=== PATIENT | female | born 1940 | race Caucasian/White ===

== ENCOUNTER 2016-11-20 05:41 | Day surgery (SDC) | payer MEDICARE ==
--- NOTE | 2016-11-19 10:26 | HP ---
DATE OF CLINIC: 11/18/2016 SEJAL ENGLISH : 1940 PLANNED PROCEDURE: Right Carpal Tunnel Release DATE OF SURGERY: November 20, 2016 SURGEON: Jarvis Tate M.D. HISTORY OF PRESENT ILLNESS Sejal English is a 76 year old female. * Medication list reviewed with patient allergy list reviewed with patient. * Tried NSAIDS Naproxen * Has not tried Physical Therapy * Has not tried Injections 76-year-old female who has a multi-year history of increasing pain in her bilateral hands. It radiates to her radial 3 1/2 digits. She also notices she has had some difficulty with fine motor tasks that has been increasing over the past few months. She has pain where baseline is about a 1/10, but when it gets flared up it can be as bad as 4-5/10. She has worn night splints with no relief, but has not had any injections or any previous procedures. She also takes some occasional Naproxen and this has not significantly changed her symptoms. After discussion and review of treatment options, both operative and non-operative, she has elected to proceed with surgery and presents today preoperatively. Past medical and surgical history are as documented. CURRENT MEDICATION * Alendronate Sodium 70 MG Tablet once a week, 28 days, 11 refills * Benadryl 25 MG TABS, one tablet every 6 to 8 hrs PRN, 30 days, 0 refills * Centrum Silver Ultra Womens Tablet as directed 0 days, 0 refills * Fluocinonide 0.05 % Cream twice a day prn, 30 days, 5 refills * Hydrocodone-Acetaminophen 5-325 MG Tablet 1/2-1 po q 6 hrs prn pain, 30 days, 0 refills * Levothyroxine Sodium 75 MCG Tablet daily, 30 days, 5 refills * Lipitor 10 MG Tablet half a tablet every day take 1/2 tab po at bedtime, 30 days, 11 refills * Lisinopril 2.5 MG Tablet 1 once a day, 30 days, 11 refills * MetroNIDAZOLE 0.75 % GEL, twice a day prn for rosacea, 30 days, 5 refills * Nystatin-Triamcinolone 845265-6.1 UNIT/GM-% Cream 1 twice a day 1 twice a day : aaa bid, 30 days, 1 refills * Sertraline HCl 100 MG Tablet as directed as directed 150 mg (1.5 tabs) once daily, 30 days, 6 refills * Sudafed 12 Hour 120 MG TB12, 1 twice a day 30 days, 0 refills * Vitamin D3 1000 UNIT Tablet as directed take 4 po daily, 0 days, 0 refills PAST MEDICAL/SURGICAL HISTORY Reported: Medical: Reported numbness, Reported tingling, renal Kidney Stones, history of Arthritis, Depression, Thyroid Disorder low, Hypertension, and Osteoporosis. Surgical / Procedural: Surgical / procedural history 2005 Bunionectomy; Cholecystectomy. Kidney stone removal 1965 biopsy Left foot Avitia's neuroma Lt 1985 Rt 2000 Cholecystectomy 1986 and Eye Surgery Cataract both eyes 2012. Exposure: Exposure to a contagious disease: Influenza. Diagnoses: Essential hypertension. Nephrolithiasis past history. Hyperlipidemia Obesity. Depression Acne Rosacea; Osteoporosis; Nephrolithiasis' Hx osteomyelitis; Hx anemia. Surgical: * Appendectomy * Hysterectomy 1981 * Total abdominal hysterectomy ovaries are still in SOCIAL HISTORY Social history unchanged. Personal: Recent emotional stress and chronic emotional stress. Behavioral: Non-smoker never smoked. Smoking status: Never smoker. Alcohol: Alcohol rarely. Habits: Not exercising regularly. Home Environment: Lives independently with spouse. Work: Occupation office work / book keeper etc. ALLERGIES * *Other Reaction: Skin Rashes/Hives * Bandaging Tape Reaction: Skin Rashes/Hives * Erythromycin Derivatives Reaction: Stomach pain * Rifamycins Reaction: Skin Rashes/Hives FAMILY HISTORY 2 children living Heart disease Essential hypertension Depression Family medical history Mother- Kidney Disease, Cancer, Hypertension Father- Kidney Disease, cancer Brother- Heart Disease, Hypertension Sister- Kidney Disease, Hypertension Cancer skin-Mother and father Kidney disease mother and father Osteoarthritis mother Blood pressure Mother REVIEW OF SYSTEMS No recent constitutional symptoms to include fevers and chills. No recent cardiovascular symptoms to include chest pain or palpitations. No recent respiratory symptoms to include shortness of breath or recent infections. PHYSICAL FINDINGS * Vitals taken 11/18/2016 10:55 am BP-Sitting R 118/58 mmHg Pulse Rate-Sitting 77 bpm Temp-Oral 97.8 F Height 61.75 in Weight 244 lbs 3.2 oz Body Mass Index 45.0 kg/m2 Body Surface Area 2.07 m2 Pain Level 0 Ears, Nose, Throat: * ENT: normal. Lungs: * Clear to auscultation. Cardiovascular: Heart Rate and Rhythm: * Normal. Abdomen: * Normal. Neurological: Motor: * Dominant Hand = Right Hand. Patient is a well-developed, well-nourished female in no acute distress. She is awake, alert and conversant throughout the encounter. CARDIOVASCULAR: Intact peripheral pulses on bilateral upper extremities. No significant edema on inspection of bilateral upper extremities. NEUROLOGIC: Patient had intact coordinated composite motion of the bilateral upper extremities and sensation intact to light touch in all distributions of bilateral upper extremities. PSYCHIATRIC: Patient was oriented to person, place and time and displayed appropriate mood and affect during the encounter. SKIN: Exam of the skin on bilateral upper extremities showed no significant scars, lesions, rashes or masses. FOCUSED MUSCULOSKELETAL EXAM: Normal resting station of bilateral shoulders, elbows and wrists. She has positive Tinel's and flexion compression test at the wrists. She has no significant wasting in the thenar eminences. She's got some decreased sensation in the radial 3 1/2 digits, but does have protective sensation present. Both hands are warm and well perfused and she has brisk capillary refill. IMAGING Review of her nerve conduction studies shows moderate carpal tunnel syndrome bilaterally. ASSESSMENT This is a 76-year-old female with moderate bilateral carpal tunnel syndrome which has failed to respond to a course of non-operative measures. THERAPY * Patient fall risk screen negative. * Patient eligible for fall risk assessment. * Patient received fall risk assessment. PLAN * Carpal tunnel syndrome, bilateral upper limbs Percocet 5-325 MG TABS, 1 every 4 - 6 hours as needed, 14 days, 0 refills * Decompression of median nerve at carpal tunnel -right CARE TEAM Tamie Khoury MD [facility] SURGICAL CONSENT We have discussed surgical options including right CTR and non-operative management. The patient was counseled in detail regarding the diagnosis, treatment options available, prognosis of each treatment option and the potential risks and complications. The risks of surgery include, but are not limited to, anesthetic , neurovascular complications, pulmonary embolism, deep vein thrombosis, wound dehiscence, failure of any or all of the discussed procedures, infection of the joint or surrounding soft tissue, need for revision surgery, chronic pain, limitations in activities of daily living, inability to return to work, and loss of normal range of motion or functional use of the extremity. There is the possibility of failure over time that may require additional operative or non-operative treatment. The patient acknowledged that there are a number of perioperative risks not mentioned here and would still like to proceed. The patient is aware of and understands these risks, and wishes to proceed with the proposed surgical procedure and other procedures as indicated at the time of surgery. We will have the patient see their PCP for a preoperative medical risk assessment. The preoperative instructions were reviewed with the patient and all questions were answered. PB/sg
[~2016-11-20 05:41] MED LIST: IV START KIT ONE; LACTATED RINGERS 1,000 ML ONE
[2016-11-20] MEDS ORDERED: CEFAZOLIN SODIUM 2 GRAM PREMIX 100 ML IV PRN (05:45)
[2016-11-20] MEDS ORDERED: FENTANYL 100 MCG/2 ML VIAL ONE (06:35)
[2016-11-20] MEDS ORDERED: MIDAZOLAM HCL 1 MG/ML 2ML VIAL ONE ×2 (06:35→07:25)
[2016-11-20] MEDS ORDERED: LIDOCAINE 0.5% (PRES FREE) 50 ML VIAL ONE (06:38)
[2016-11-20] MEDS ORDERED: IV START KIT ONE (07:08)
[2016-11-20] MEDS ORDERED: BUPIVACAINE 0.5% W/EPI SDV 30 ML VIAL ONE (07:38)
--- NOTE | 2016-11-20 08:02 | PCMBPN ---
Brief Post Op Note: Date of Procedure: 11/20/16 Start Time: 0745 Preoperative Diagnosis: 1. right carpal tunnel release Postoperative Diagnosis: 1. Same Procedure: right carpal tunnel release Surgeon: Jarvis Tate MD Assist: none Anesthesia: Camryn Narayan Findings: as above Condition: stable to SDS Complications: none IV Fluids: 600 mLs of LR Urine Output: 0 mLs Estimated Blood Loss: 1 mLs Tourniquet Time: 20 min at 250 mm Hg Specimens: none Implants: none Drains: none Jarvis Tate MD
[2016-11-20] MEDS ORDERED: LACTATED RINGERS 1,000 ML IV SCH (08:31)
[2016-11-20] MEDS ORDERED: DIPHENHYDRAMINE HCL 50 MG/1 ML VIAL IV PRN (08:31)
[2016-11-20] MEDS ORDERED: HYDROMORPHONE HCL 1 MG/ML SYRINGE IV PRN (08:31)
[2016-11-20] MEDS ORDERED: ACETAMINOPHEN 325 MG TABLET PO PRN (08:31)
[2016-11-20] MEDS ORDERED: OXYCODONE HCL 5 MG TABLET PO PRN (08:31)
[2016-11-20] MEDS ORDERED: ONDANSETRON 4 MG/2ML 2 ML VIAL IV PRN (08:31)
--- NOTE | 2016-11-21 09:44 | OP ---
Sejal ENGLISH : 1940 [id number] DATE OF SERVICE: November 20, 2016 PREOPERATIVE DIAGNOSIS: Right carpal tunnel syndrome. POSTOPERATIVE DIAGNOSIS: Right carpal tunnel syndrome. PROCEDURE PERFORMED: RIGHT OPEN CARPAL TUNNEL RELEASE. SURGEON: Jarvis Tate M.D. ROLL DOUGH DIVIDER: None. ANESTHESIA: Germaine Narayan C.R.N.A. SPECIMENS: No material was sent to the laboratory. ESTIMATED BLOOD LOSS: 1 mL FLUIDS REPLACED: 600 mL of crystalloid. TOURNIQUET TIME: 20 minutes at 250 mmHg. IMPLANTS: None. DRAINS: None. INDICATIONS: This is a 76-year-old right hand dominant female with increasing symptoms of numbness, tingling and weakness in her right hand. She has nerve conduction studies which document carpal tunnel syndrome and an exam which supports the same. Risks, benefits and alternatives of open carpal tunnel release were discussed with the patient and she elected to proceed with surgery. Informed consent was obtained and documented in the chart and the patient was placed on the schedule at the first available convenience. DESCRIPTION OF PROCEDURE: The patient was identified in the pre-operative holding area where she was marked with an indelible marker by the operating surgeon. She was taken to the operating room where she was placed in a supine position on the operating room table. Preoperative time out was performed then the patient had a Stephanie block administered by the anesthesia providers. The tourniquet was inflated as part of this a [place] block. She was then prepped and draped in the usual sterile fashion for surgery and again an operative time out was performed and confirmed by all members of the operative team. A longitudinal incision was made 6 mm ulnar to the thenar flexion crease of her right hand. Dissection was carried down identified the transverse fibers to the transverse carpal ligament. A knick incision was made in the proximal portion of the ligament and the median nerve was identified deep to the ligament. A [place] elevator was passed into the carpal tunnel protecting the nerve and the remainder of the transverse carpal ligament was sharply divided. Under direct visualization the tips of a pair of tenotomy scissors were passed and spread both superficial and deep to the distal portion of the volar forearm fascia and then under direct visualization a push cut technique was used to release the fascia. At this point the wound was copiously irrigated with sterile saline and the incision was closed with three horizontal mattress sutures of #3-0 Nylon; 10 mL of 0.5% Marcaine with epinephrine was injected around the incision for perioperative analgesia. A sterile dressing of Xeroform, fluffs, web roll and an GEORGE bandage was applied. The tourniquet was deflated and draped removed. [facility] and [facility] postoperatively to the postanesthesia care unit in stable condition. There were no observed intraoperative complications during this procedure. Job [id number] cc: [facility]
== END 2016-11-20 09:33 | disposition home or self-care (01) ==
LOC: SDC 05:41
PROVIDERS: ATTEND Orthopaedic Surgery
PROC: 01N50ZZ Release Median Nerve, Open Approach (ICD-10-PCS; principal; 2016-11-20)
DX: G56.03 Carpal tunnel syndrome, bilateral upper limbs (principal); M81.0 Age-related osteoporosis without current pathological fracture; I10 Essential (primary) hypertension; E03.9 Hypothyroidism, unspecified; F32.9 Major depressive disorder, single episode, unspecified; M19.90 Unspecified osteoarthritis, unspecified site; E78.5 Hyperlipidemia, unspecified; E66.9 Obesity, unspecified; Z68.42 Body mass index [BMI] 45.0-49.9, adult; Z88.1 Allergy status to other antibiotic agents
CPT/HCPCS: 64721; J3010; J2250 ×2; J2001; J7120